=== PATIENT | male | born 1990 | race Caucasian/White ===

== ENCOUNTER 2021-03-31 23:07 | Emergency (ER) | payer OTHER, SELFPAY ==
[2021-03-31 23:21] VITALS: BP 146/80; PULSE 94; RESP 20; TEMP 36.5; O2SAT 98
--- NOTE | 2021-03-31 23:36 | ED.GENADULT ---
HPI - General Adult General Chief complaint: Wound/Laceration Stated complaint: Left thumb lac Time Seen by Provider: 03/31/21 23:31 Source: patient History of Present Illness HPI narrative: 30-year-old male presented to the emergency department for evaluation of an injury to his left thumb. 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 Patient was attempting to fix a mask and cut his left thumb. Bleeding was controlled upon arrival to the nurse department. Patient is unsure of his last tetanus. Related Data Home Medications Medication Instructions Recorded Confirmed No Home Medications 03/31/21 03/31/21 Allergies Allergy/AdvReac Type Severity Reaction Status Date / Time No Known Allergies Allergy Verified 03/31/21 23:51 Review of Systems Review of Systems: CONSTITUTIONAL: Denies fever, chills, or sweats. SKIN: Laceration to left thumb MUSCULOSKELETAL: Denies back pain, joint pain, or myalgia. NEUROLOGIC: Denies headache, numbness, or weakness. Exam Narrative: APPEARANCE: Well appearing, no pain, no distress, well-nourished. HEAD: normocephalic, atraumatic. MUSCULOSKELETAL: Moves all extremities. Strength/ROM intact, No edema, No calf tenderness. NEURO: Neurovascularly intact SKIN: 1 cm laceration to the distal aspect of the left thumb not involving the nail. Course Course Emergency Course: Laceration was repaired as described above. Vital Signs Vital signs: Vital Signs Temperature 97.7 F 03/31/21 23:21 Pulse Rate 94 03/31/21 23:21 Respiratory Rate 20 03/31/21 23:21 Blood Pressure 146/80 H 03/31/21 23:21 Pulse Oximetry 98 03/31/21 23:21 Temperature 97.7 F 03/31/21 23:21 Pulse Rate 94 03/31/21 23:21 Respiratory Rate 20 03/31/21 23:21 Blood Pressure 146/80 H 03/31/21 23:21 Pulse Oximetry 98 03/31/21 23:21 Procedures Laceration Laceration 1: Time: 00:07 Site: upper extremity Side (If applicable): left Size (cm): 1 Description: linear Local Anesthetic: lidocaine 1% ====== Skin Level ====== Skin layer closed with: nylon Size (cm): 4-0 Number of sutures: 2 Technique: simple, interrupted ====== Subcutaneous Layer ====== ====== Muscle Layer ====== ====== Tendon Layer ====== Medical Decision Making Vital Signs Vital Signs: Vital Signs Temperature 97.7 F 03/31/21 23:21 Pulse Rate 94 03/31/21 23:21 Respiratory Rate 20 03/31/21 23:21 Blood Pressure 146/80 H 03/31/21 23:21 Pulse Oximetry 98 03/31/21 23:21 Temperature 97.7 F 03/31/21 23:21 Pulse Rate 94 03/31/21 23:21 Respiratory Rate 20 03/31/21 23:21 Blood Pressure 146/80 H 03/31/21 23:21 Pulse Oximetry 98 03/31/21 23:21 Discharge Plan Discharge Clinical Impression: Laceration Patient Disposition: Home, Self-Care Condition: Improved Instructions: Antibiotic Form, Laceration (ED) Additional Instructions: Wound care as directed. Sutures will need to be removed in 7 to 10 days. Have close follow-up with your primary care physician. If you have any worsening symptoms or if you have any questions or concerns and please call or return to the emergency department Prescriptions: No Action No Home Medications RF: 0 Follow-up/Referrals: PHYSICIAN,[employer] [Primary Care Provider] - Yair Macias MD [Physician] -
[2021-03-31] MEDS: TETANUS,DIPHTHERIA,AC PERTUSSIS ADULT (0.5 ML) BOOSTRIX IM (23:52)
== END 2021-04-01 00:36 | disposition home or self-care (01) ==
PROVIDERS: Emergency Provider Emergency Medicine
DX: S61.012A Laceration without foreign body of left thumb without damage to nail, initial encounter (principal); Z23 Encounter for immunization; W26.9XXA Contact with unspecified sharp object(s), initial encounter
CPT/HCPCS: 12001; 90471; 90715; 99282